=== PATIENT | female | born 1945 | race Caucasian/White ===

== ENCOUNTER 2016-09-29 08:04 | Outpatient (CLI) | payer MEDICARE, OTHER | END 2016-09-29 11:19 | LOC: D.MAMMO 08:04 | DX: Z12.31 Encounter for screening mammogram for malignant neoplasm of breast (principal) ==

== ENCOUNTER → 2019-10-25 13:15 | Outpatient (CLI) | payer MEDICARE, OTHER | END | disposition home or self-care (01) | LOC: D.CT 13:15 | PROVIDERS: ATTEND Nurse Practitioner | DX: R41.3 Other amnesia (principal) ==

== ENCOUNTER 2020-10-16 16:00 | Outpatient (CLI) | payer MEDICARE, OTHER ==
[~2020-10-16 16:00] MED LIST: ADOXA100 MG PO; CARAFATE1 G PO; CELEXA20 MG PO; DECADRON4 MG PO; DICLOFENAC SODI50 MG PO; ELIQUIS5 MG PO; MELATONIN 3 MG1 TAB PO; TOPAMAX100 MG PO; VITAMIN B-1100 M1 PO; VITAMIN C PO; VITAMIN D325 MC1 PO; ZANAFLEX4 MG PO; ZETIA10 MG PO
== END 2020-10-16 23:59 | disposition home or self-care (01) ==
LOC: D.MAMMO 16:00
PROVIDERS: ATTEND Family Medicine
DX: Z12.31 Encounter for screening mammogram for malignant neoplasm of breast (principal)